=== PATIENT | female | born 1945 | race Caucasian/White ===

== ENCOUNTER → 2017-12-07 07:21 | Outpatient (CLI) | payer MEDICARE, SELFPAY ==
--- NOTE | 2017-12-07 | BRBX_PTH ---
PATIENT: TEJ ROBERTSON LOC: [facility] U#:[id number] AGE/SX: 79/F ROOM: RE12/07/[address]: Dr. Yani Vyas MD : 1945 BED: DIS: SPEC #: [id number] RECD: 12/07/17 12:32 STATUS: [facility] #: [id number] TONEY: 12/07/17 00:[address]: Yani Vyas DEPT: SURGICAL PATHOLOGY RECD BY: Bentley Flor ENTERED: 12/07/17 12:32 SP TYPE: BREAST BX OTHR DR: Dr. 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 Type ? solid, cribriform and comedo types. Microcalcifications ? present, associated with DCIS. Maximal length ? 7.5 mm AM:areli 12/08/17 COMMENT ER/AZ/Jur8epf studies are being performed on ductal carcinoma insitu and the results from this study will be reported separately ([id number]). The focus of invasive carcinoma measures less than 1.0mm in greatest dimension. It is recommended that hormonal marker study be performed on the excised invasive tumor for diagnostic/prognostic validity. Case has been reviewed in consultation with Dr. Melchor who concurs with the above diagnosis. IDC:SJ MICROSCOPIC DESCRIPTION Slides are reviewed. GROSS DESCRIPTION Received in fixative is one container labeled with the patient's name and designated right breast. The specimen consists of multiple irregular and elongated fragments of yellow-white soft tissue that in aggregate measure 3 x 2.2 x 0.2 cm. The specimen is totally submitted in one cassette. / AM:areli 12/07/17 TC:0 CPT: 05072
--- NOTE | 2017-12-07 | IMM_PTH ---
PATIENT: TEJ ROBERTSON LOC: [facility] U#:[id number] AGE/SX: 79/F ROOM: RE12/07/[address]: Dr. Yani Vyas MD : 1945 BED: DIS: SPEC #: [id number] RECD: 12/08/17 10:34 STATUS: MCKEN[facility]IE REQ #: [id number] TONEY: 12/07/17 00:[address]: Yain Vyas DEPT: IMMUNOHISTOCHEMISTRY RECD BY: Geneva Reyes ENTERED: 12/08/17 10:35 SP TYPE: IMMUNO OTHR DR: Dr. Rian Alarcon MD Tissues: Right breast, NOS Procedures: CALPONIN-1 (add) CK8 (add) E-CAD (add) HER2 ALLIE (add) KI-67 (add) P53 (add) OR (add) P40 (add) ER (initial) PHYSICIAN & INSTITUTION [place] [address] SPECIMEN INFORMATION: Tissue Source: Right breast Clinical Info: Deep central lateral right breast calcifications Specimen Number: [id number] CPT code: 09195, 31160 x5, 10730 x3 METHODOLOGY: Deparaffinized sections of prefer/formalin-fixed tissue or PAP/DQ stained slides are incubated with monoclonal/polyclonal antibodies/oligonucleotide probes. Localization is made via biotin free immunoperoxidase method. Appropriate controls are performed and reacted as expected. Results on target cell population are indicated in the following table: RESULTS: ANTIBODY / CLONE RESULT (for DICS) ER (6F11) positive, 20%, dim OR (1E2) positive, 2%, dim Her-2neu (CB11) positive, 3+ P53 (DO-7) positive, 38% Ki-67 (30-9) positive, low CK8 ([id number]) positive Calponin-1 (HJ528W) positive, focal * P40 (BC28) positive * E-Cad (ECH-6) positive * Negative in area of microinvasive carcinoma. These tests were developed and their performance characteristics determined by [facility]. They may not have been cleared or approved by the U.S. Food and Drug Administration. The FDA has determined that such clearance or approval is not necessary. INTERPRETATION: Right breast, stereotactic needle core biopsy: Ductal carcinoma in situ. Focal microinvasive ductal carcinoma (<0.1 cm). Case has been reviewed in consultation with Dr. Melchor who concurs with the above diagnosis. IDC:VIANNEY AM:areli 12/09/17
--- NOTE | 2017-12-07 09:27 | OP.PCM_ITS ---
Report of Operation Date of Procedure: 12/07/17 Pre-Operative Diagnosis: abnormal right breast calcifications on mammograms Post-Operative Diagnosis: same Surgery/Procedure Performed:: right stereotactic breast biopsy Description of Surgical Findings:: lower outer calcifications seen on mammograms Type of Anesthesia:: Local - 1% xylocaine Anesthesiologist: none Specimen's removed: right breast tissue Estimated Blood Loss (mL): < 1 Fluids Replaced: none Description of Procedure: After informed consent was given, the patient was brought into the breast biopsy suite. Appropriate time out protocol was followed. She was then placed in the prone position on the stereotactic biopsy table. The patient?s right breast was then placed in the hole at the head of the table. A other sales support worker compression mammogram was then obtained in the lateral view. The suspicious radiological lesion was then identified. Stereo pictures of the lesion were then taken for XYZ coordinates. The Mammotome biopsy stylus was then positioned where it would be entering into the patient?s breast. The skin at this site was then cleansed with a surgical skin preparation. The skin and subcutaneous tissues at this site were then infiltrated with 1% xylocaine. A small skin incision was made with an 11 blade scalpel. The biopsy stylus was then positioned into the patient?s breast at the proper coordinates of depth. Using the Mammotome vacuum-assist device, several core samples of breast tissue were obtained. A specimen mammogram was the obtained and revealed that the suspicious lesion was within the specimen. A hemostatic marker clip was then placed into the biopsy cavity and a other sales support worker film revealed that it was properly deployed. The patient was then placed in the supine position and pressure was applied to the breast until no active bleeding was noted. Steristrips were applied to reapproximate the skin. A unilateral mammogram in the CC and MLO view were then taken which revealed that the marker clip was in the same area as the previous suspicious lesion. The patient tolerated the procedure well and was discharged from the breast biopsy suite in good condition. - Complications none noted - Admit VTE Documentation VTE Present on Admission: No - low risk procedure for DVT/PE
== END ==
PROVIDERS: Family Provider Family Medicine; PCP Family Medicine; Visit Provider Surgery
DX: D05.11 Intraductal carcinoma in situ of right breast (principal)
CPT/HCPCS: 19081; 88305; 88341; 88342; J7050; A4648

== ENCOUNTER 2017-12-21 10:22 | Day surgery (SDC) | payer MEDICARE, SELFPAY ==
--- NOTE | 2017-12-21 | AXNB_PTH ---
PATIENT: TEJ ROBERTSON [place] [facility] [place] U[place][id number] AGE/SX: 72/F ROOM: RE12/21/[address]: Dr. Yani Vyas MD : 1945 BED: DIS: 12/21/2017 SPEC #: [id number] RECD: 12/21/17 15:13 STATUS: MCKENZIE RE #: [id number] TONEY: 12/21/17 00:[address]: Yani Vyas DEPT: SURGICAL PATHOLOGY RECD BY: Geneva Reyes ENTERED: 12/21/17 16:15 SP TYPE: AX NODE BX OTHR DR: Dr. Rian Alarcon MD Tissues: A - Axillary lymph node, NOS Right breast, NOS Procedures: Frozen Section (charge) Frozen Section Add'l ([facility]) Surgery Specimen Level V Frozen (no charge) HEADER OPERATION: Breast lumpectomy with Neoprobe and NL, frozen section PRE-OP DIAGNOSIS: Right breast cancer TISSUE SUBMITTED: A ? [place] node biopsy right breast, sent FS at 1514, B ? Right breast lumpectomy with wire sent to mammography, then pathology, wire ? lateral, 2 long sutures ? medial, 1 long ? posterior, short suture ? superior border. There is a suture connecting two pieces of tissue that is not marking a border FROZEN SECTION DIAGNOSIS A. Right axillary sentinel lymph nodes, biopsy: Two out of two lymph nodes negative for carcinoma. AM:areli 12/21/17 MICROSCOPIC DIAGNOSIS A. Right axillary sentinel lymph node, biopsy: Two out of two lymph nodes negative for carcinoma. B. Right breast, lumpectomy: Ductal carcinoma in situ. See complete cancer checklist below. AM:areli 12/25/17 COMMENT B. DUCTAL CARCINOMA IN SITU SUMMARY: Specimen - partial breast Procedure - excision with wire-guided localization. Lymph node sampling ? see specimen A Specimen integrity - single intact specimen Specimen size ? 7 x 3 x 2 cm Specimen laterality ? right breast Size (extent) of DCIS: Estimated size (greatest dimension) ? 4 mm Additional dimensions ? 2 x 2 mm Number of blocks with DCIS ? 3 Number of blocks examined - 10 Histologic type - ductal carcinoma in situ Architectural patterns ? solid and focal comedo type Nuclear grade - grade 3 (high grade) Necrosis - present, central Margins: Distance from closest margin ? 0.5 cm from closest (inferior) margin. Lymph nodes: Number of sentinel lymph nodes examined - 2 Total number of lymph nodes examined (sentinel and nonsentinel) ? 2 There is no evidence of macrometastasis or micrometastasis. See specimen A. Microcalcifications ? focally present. Ancillary Studies from previous specimen ([id number] / [id number]): ER ? 20% MI ? 2% Her2 yocasta (IHC) ? 3+ Her2 by FISH - not performed. Pathologic Staging: pTis(DCIS) N0 Mx The above summary is in compliance with [employer] (CAP) Cancer Protocols Checklist and [place] Joint Committee on Cancer (AJCC), Staging Manual, 8th Ed. Immunohistochemistry ([id number]) supports the above diagnosis. Case has been reviewed in consultation with Dr. Melchor who concurs with the above diagnosis. IDC:SJ MICROSCOPIC DESCRIPTION Slides are reviewed. GROSS DESCRIPTION A - Received fresh for frozen section consultation labeled with the patient's name is a specimen designated right axillary sentinel lymph nodes. The specimen consists of an irregular fragment of yellow fatty tissue measuring 5 x 3 x 1 cm. Dissection reveals two nodules resembling lymph nodes that measure 1 and 1.2 cm in greatest dimension, respectively. The nodules are submitted in their entirety for frozen section consultation in two blocks. B - Received fresh for OR consultation labeled with the patient's name is a specimen designated ?right breast lumpectomy.? The specimen consists of an oriented fragment of sanchez-yellow fibrofatty tissue measuring 7 x 3 x 2 cm and weighing 17.6 gm. The specimen is differentially inked as follows: anterior ? yellow, posterior ? black, medial ? red, lateral ? orange, superior ? blue and inferior ? green. The specimen is serially sectioned to reveal a blood filled biopsy cavity measuring 2 x 1 x 0.7 cm. The biopsy is located 0.5 cm from its closest (inferior) margin of excision. The proximity of the lesion to the margin is conveyed to the surgeon intraoperatively. The remainder of the breast parenchyma is sanchez-yellow and contains focal fibrous streaks. Note, the specimen is wire guided. Speech Language Assistant sections are submitted in ten cassettes as follows: 1 ? perpendicular inked margin, 2-6 ? biopsy cavity and surrounding soft issue and margins, 7-10 ? tax compliance representative sections of breast parenchyma away from biopsy cavity. / AM:areli 12/22/17 TC:0 CPT: 61338 x2, 26221, 89776, 44697
--- NOTE | 2017-12-21 | IMM_PTH ---
PATIENT: TEJ ROBERTSON [place]: [facility] [place] U#:[id number] AGE/SX: 72/F ROOM: RE12/21/[address]: Dr. Yani Vyas MD : 1945 BED: DIS: 12/21/2017 SPEC #: [id number] RECD: 12/23/17 13:40 STATUS: MCKENZIE REQ #: [id number] TONEY: 12/21/17 00:[address]: Yani Vyas DEPT: IMMUNOHISTOCHEMISTRY RECD BY: Geneva Reyes ENTERED: 12/23/17 13:45 SP TYPE: IMMUNO OTHR DR: Dr. Rian Alarcon MD Tissues: A - Axillary lymph node, NOS B - Right breast, NOS Procedures: Calponin-1(initial) CALPONIN-1 (add) CK7 (add) Pankeratin (add) P40 (add) CK7 (initial) PHYSICIAN & INSTITUTION [place] [id number] SPECIMEN INFORMATION: Tissue Source: A ? [place] node biopsy right breast, B ? Right breast lumpectomy Clinical Info: Right breast cancer Specimen Number: [id number] A1, A2, B2, B3, B4, B5, B6 CPT code: 37304 x2, 53132 x12 METHODOLOGY: Deparaffinized sections of prefer/formalin-fixed tissue or PAP/DQ stained slides are incubated with monoclonal/polyclonal antibodies/oligonucleotide probes. Localization is made via biotin free immunoperoxidase method. Appropriate controls are performed and reacted as expected. Results on target cell population are indicated in the following table: RESULTS: ANTIBODY / CLONE RESULT Block A1 CK7 (OV-TL12/30) negative AE1-3 (AE1/AE3/PCK26) negative Block A2 CK7 (OV-TL12/30) negative AE1-3 (AE1/AE3/PCK26) negative Block B2 P40 (BC28) positive Calponin-1 (QV188R) positive Block B3 P40 (BC28) positive Calponin-1 (BD673O) positive Block B4 P40 (BC28) positive Calponin-1 (GD516T) positive Block B5 P40 (BC28) positive Calponin-1 (GQ657U) positive Block B6 P40 (BC28) positive Calponin-1 (QL660S) positive These tests were developed and their performance characteristics determined by [facility]. They may not have been cleared or approved by the U.S. Food and Drug Administration. The FDA has determined that such clearance or approval is not necessary. INTERPRETATION: A. Right axillary sentinel lymph nodes, biopsy: Two out of two lymph nodes negative for carcinoma. B. Right breast, lumpectomy: Ductal carcinoma in situ. AM:areli 12/24/17
[2017-12-21 10:44] VITALS: BP 150/64; PULSE 69; RESP 16; TEMP 36.7; O2SAT 99; BMI 25.7
--- NOTE | 2017-12-21 11:00 | NM_ITS ---
PROCEDURE: NUCLEAR MEDICINE Injection [place] Node - RIGHT breast(s). REASON FOR EXAM: Female, 72 years old. Right breast cancer. TECHNIQUE: [place] node localization using radionuclide methods of the RIGHT breast(s) was performed following subcutaneous administration of 1.2 mCi of of sulfur colloid Tc-99m. FINDINGS: 1.2 mCi of technetium labeled sulfur colloid was injected in 4 equal aliquots for sentinel node imaging. NM/Lymph Node Injection Only IMPRESSION: Subcutaneous injection of 1.2 mCi of technetium labeled sulfur colloid for intraoperative sentinel node imaging. Electronically Signed: Darek Btuts MD at 11:28 EST Tel [phone], Service support ,
--- NOTE | 2017-12-21 11:43 | HPBI_ITS ---
SURGICAL BREAST SPECIMEN RADIOGRAPH CLINICAL: Document presence of calcifications in biopsy specimen. FINDINGS: Specimen shows presence of calcifications. Electronically Signed: Darek Butts MD at 8:12 EST Tel [phone], Service support , BI/Breast Biopsy Specimen
[2017-12-21] MEDS: Cefazolin 2 GM in 0.9% Normal Saline 100 ML IV (14:23)
[2017-12-21] MEDS: Isosulfan Blue 1% 5 ML Vial (14:28)
[2017-12-21] MEDS: Bupiv/Epi 0.5% Mpf 30 ML Vial (16:00)
--- NOTE | 2017-12-21 16:19 | PCM.IMDPSTOP ---
Immediate Post-Op Note Date of Procedure: 12/21/17 Primary Surgeon/Physician: Yani Vyas statistical machine servicer: Elisa Hernandez Pre-Operative Diagnosis: right breast cancer Post-Operative Diagnosis: same Surgery/Procedure Performed:: right breast lumpectomy via wire localization, right axillary sentinel lymph node biopsy via radioactive and blue dye localization Description of Surgical Findings:: biopsy cavity deep central, closest margin inferior 5mm from biopsy cavity, two lymph node negative, tumor 10 second count over 30,000, lymph node count 81, control site count 1 Estimated Blood Loss: < 10 ml Specimen's removed: right breast lumpectomy, right axillary lymph viviana tissue Drains: none Type of Anesthesia:: General ASA Class: ASA2 Mod Systematic Disease - Admit VTE Documentation VTE Present on Admission: Yes VTE Mechan Device Prophylaxis: SCD's
--- NOTE | 2017-12-21 16:21 | PCM.OPRPT ---
Report of Operation Date of Procedure: 12/21/17 Pre-Operative Diagnosis: right breast cancer Post-Operative Diagnosis: same Surgery/Procedure Performed:: right breast lumpectomy via wire localization, right axillary sentinel lymph node biopsy via radioactive and blue dye localization Description of Surgical Findings:: biopsy cavity deep central, two lymph node negative, tumor 10 second count over 30,000, lymph node count 81, control site count 1 gauge and weigh machine adjuster: Elisa Hernandez Type of Anesthesia:: General Anesthesiologist: Noris Saavedra Specimen's removed: right breast lumpectomy, right axillary lymph viviana tissue Drains: none Estimated Blood Loss (mL): < 10 ml Description of Procedure: After informed consent was given, the patient was brought into the Breast Stereotactic Radiology suite. Appropriate time out protocol was followed. She was then placed in the prone position on the Bob stereotactic table. The patients right breast was placed in the opening at the head of the table. A burglar alarm inspector compression mammogram was then obtained in the lateral view. The marker clip that was previously placed was identified. Stereo pictures of the lesion were then taken for XYZ coordinates. The Kopans needle was then positioned where it would be entering into the patients breast. The skin at this site was then cleansed with a surgical skin preparation. The skin and subcutaneous tissues at this site were then infiltrated with 1% xylocaine. The Kopans needle was then positioned into the patients breast at the proper coordinates of depth. A burglar alarm inspector film was obtained which revealed the wire in proper position. The patient was then placed in the supine position and the wire was taped into place. A unilateral mammogram in the CC and MLO view were then taken for use in the OR. The patient tolerated this portion of the procedure well and was brought to the AC awaiting surgery in the OR. The patient was then brought to the Operating Room. Appropriate time out protocol was followed. She was placed on the operating table in the supine position. She was then placed under general anesthesia. 3 cc of diluted 50:50 lymphozurin was then injected into the periareolar area and around the biopsy cavity with a 25 g needle. Gentle massage was then done for several minutes. The patient's right chest and neck area was then prepped with a betadyne surgical skin preparation and appropriate sterile surgical drapes were placed. A skin incision was made in the inferior portion of the hair bearing area of the right axilla. It was carried through to the subcutaneous tissues using electrocautery. Any hemorrhage was controlled with electrocautery. A Weitlaner retractor was used for increased operative exposure. The blue lymphatic vessels were then followed by blunt dissection until blue colored tissue was identified. The Neoprobe was brought into the operative field. 10 second count of the tumor site was at least [address]. 10 second count over a control site was 1. The lymph tissue was dissected free from the surrounding tissue using blunt and sharp dissection. Blood and lymph vessels were ligated with clips. Once the tissue was out of the axilla, a 10 second count of this tissue was 81. The tissue was forwarded to pathology. 10 second count in the axilla after this tissue was removed was 2. Pathology revealed that two lymph nodes were negative for metastatic disease. Hemostasis was carefully checked and found to be good. Aden was applied in the cavity. The skin edges were reapproximated with 3-0 vicryl suture in a horizontal mattress fashion and then further closed with running 4-0 monocryl in a subcuticular fashion. Cavilon and steristrips were then placed to reinforce the skin closure and proper sterile dressings were applied. The right breast lumpectomy was approached next. A wire had already been placed in the stereotactic biopsy room in the radiology department as described above. The right breast with the wire in placed was then prepped with a sterile surgical skin preparation and sterile surgical drapes were placed. The skin and subcutaneous tissues at the site of the breast lesion was then infiltrated with 1% xylocaine with epinephrine. A lower circumareolar then laterally extended transverse skin incision was made with a 15 blade scalpel and carried down through to the subcutaneous tissues. Hemostasis was controlled with electrocautery. The wire was then palpated out and brought into the wound from outside. The breast tissue surrounding the wire was then carefully palpated out and from the surrounding tissues using electrocautery. The breast tissue, once from the breast, was then forwarded to the radiology department, where a specimen mammogram revealed that the marker clip was within the specimen. The breast tissue was then forwarded to pathology for analysis. Pathology review revealed that the closest margin of the biopsy cavity was inferior with a measurement of 5mm. The wound cavity was carefully examined. No further suspicious tissue was palpated or visualized. Hemostasis was carefully controlled with electrocautery. The subdermal tissues were then approximated with vicryl suture. The incision was then reapproximated close using running monocryl suture. Cavilon and steristrips were then placed to reinforce the skin closure. A sterile dressing was then applied. The patient was then brought to the Recovery Room in stable condition. - Complications none noted - Admit VTE Documentation VTE Present on Admission: Yes VTE Mechan Device Prophylaxis: SCD's
--- NOTE | 2017-12-21 16:22 | OP.PN_ITS ---
Immediate Post-Op Note Date of Procedure: 12/21/17 Primary Surgeon/Physician: Yani Vyas construction analyst: Elisa Hernandez Pre-Operative Diagnosis: right breast cancer Post-Operative Diagnosis: same Surgery/Procedure Performed:: right breast lumpectomy via wire localization, right axillary sentinel lymph node biopsy via radioactive and blue dye localization Description of Surgical Findings:: biopsy cavity deep central, closest margin inferior 5mm from biopsy cavity, two lymph node negative, tumor 10 second count over 30,000, lymph node count 81 , control site count 1 Estimated Blood Loss: < 10 ml Specimen's removed: right breast lumpectomy, right axillary lymph viviana tissue Drains: none Type of Anesthesia:: General ASA Class: ASA2 Mod Systematic Disease - Admit VTE Documentation VTE Present on Admission: Yes VTE Mechan Device Prophylaxis: SCD's
--- NOTE | 2017-12-21 16:24 | OP.PCM_ITS ---
Report of Operation Date of Procedure: 12/21/17 Pre-Operative Diagnosis: right breast cancer Post-Operative Diagnosis: same Surgery/Procedure Performed:: right breast lumpectomy via wire localization, right axillary sentinel lymph node biopsy via radioactive and blue dye localization Description of Surgical Findings:: biopsy cavity deep central, two lymph node negative, tumor 10 second count over 30,000, lymph node count 81, control site count 1 tableau developer: Elisa Hernandez Type of Anesthesia:: General Anesthesiologist: Noris Saavedra Specimen's removed: right breast lumpectomy, right axillary lymph viviana tissue Drains: none Estimated Blood Loss (mL): < 10 ml Description of Procedure: After informed consent was given, the patient was brought into the Breast Stereotactic Radiology suite. Appropriate time out protocol was followed. She was then placed in the prone position on the [place] stereotactic table. The patient?s right breast was placed in the opening at the head of the table. A caser shoe parts compression mammogram was then obtained in the lateral view. The marker clip that was previously placed was identified. Stereo pictures of the lesion were then taken for XYZ coordinates. The Kopans needle was then positioned where it would be entering into the patient?s breast. The skin at this site was then cleansed with a surgical skin preparation. The skin and subcutaneous tissues at this site were then infiltrated with 1% xylocaine. The Kopans needle was then positioned into the patient?s breast at the proper coordinates of depth. A caser shoe parts film was obtained which revealed the wire in proper position. The patient was then placed in the supine position and the wire was taped into place. A unilateral mammogram in the CC and MLO view were then taken for use in the OR. The patient tolerated this portion of the procedure well and was brought to the AC awaiting surgery in the OR. The patient was then brought to the Operating Room. Appropriate time out protocol was followed. She was placed on the operating table in the supine position. She was then placed under general anesthesia. 3 cc of diluted 50:50 lymphozurin was then injected into the periareolar area and around the biopsy cavity with a 25 g needle. Gentle massage was then done for several minutes. The patient's right chest and neck area was then prepped with a betadyne surgical skin preparation and appropriate sterile surgical drapes were placed. A skin incision was made in the inferior portion of the hair bearing area of the right axilla. It was carried through to the subcutaneous tissues using electrocautery. Any hemorrhage was controlled with electrocautery. A Weitlaner retractor was used for increased operative exposure. The blue lymphatic vessels were then followed by blunt dissection until blue colored tissue was identified. The Neoprobe was brought into the operative field. 10 second count of the tumor site was at least [address]. 10 second count over a control site was 1. The lymph tissue was dissected free from the surrounding tissue using blunt and sharp dissection. Blood and lymph vessels were ligated with clips. Once the tissue was out of the axilla, a 10 second count of this tissue was 81. The tissue was forwarded to pathology. 10 second count in the axilla after this tissue was removed was 2. Pathology revealed that two lymph nodes were negative for metastatic disease. Hemostasis was carefully checked and found to be good. Aden was applied in the cavity. The skin edges were reapproximated with 3-0 vicryl suture in a horizontal mattress fashion and then further closed with running 4-0 monocryl in a subcuticular fashion. Cavilon and steristrips were then placed to reinforce the skin closure and proper sterile dressings were applied. The right breast lumpectomy was approached next. A wire had already been placed in the stereotactic biopsy room in the radiology department as described above. The right breast with the wire in placed was then prepped with a sterile surgical skin preparation and sterile surgical drapes were placed. The skin and subcutaneous tissues at the site of the breast lesion was then infiltrated with 1% xylocaine with epinephrine. A lower circumareolar then laterally extended transverse skin incision was made with a 15 blade scalpel and carried down through to the subcutaneous tissues. Hemostasis was controlled with electrocautery. The wire was then palpated out and brought into the wound from outside. The breast tissue surrounding the wire was then carefully palpated out and from the surrounding tissues using electrocautery. The breast tissue, once from the breast, was then forwarded to the radiology department, where a specimen mammogram revealed that the marker clip was within the specimen. The breast tissue was then forwarded to pathology for analysis. Pathology review revealed that the closest margin of the biopsy cavity was inferior with a measurement of 5mm. The wound cavity was carefully examined. No further suspicious tissue was palpated or visualized. Hemostasis was carefully controlled with electrocautery. The subdermal tissues were then approximated with vicryl suture. The incision was then reapproximated close using running monocryl suture. Cavilon and steristrips were then placed to reinforce the skin closure. A sterile dressing was then applied. The patient was then brought to the Recovery Room in stable condition. - Complications none noted - Admit VTE Documentation VTE Present on Admission: Yes VTE Mechan Device Prophylaxis: SCD's
--- NOTE | 2017-12-21 16:25 | PCM.DC.BS ---
Discharge Diet: No Restrictions Discharge Activity: Return to Normal Activity, May not drive while taking narcotic pain medications. Lifting Restrictions: no lifting with right arm greater than 10 pounds until further notice Call your doctor if your incision/area has: Continuous Slow Oozing, Foul Smelling Discharge Call your doctor if you observe: Fever of 101 or Higher Additional Dressing/Incision Instructions:: May shower, do not scrub in area. Leave dressings in place. Do not soak - no tub baths/swimming. Ice pack to area for comfort as tolerated Allergies/Adverse Reactions: Allergies ibuprofen [From Motrin] Adverse Reaction (Verified 12/17/17 13:59) Upset Stomach Medications to take at Discharge Albuterol Inhaler [Ventolin Hfa (SP)] 1 - 2 puff INHALATION Q4H PRN PRN 12/17/17 Aspirin E.C. [Ecotrin] 81 mg PO DAILY@0800 12/17/17 Calcium Carbonate [Calcium] 600 mg PO BID 12/17/17 Cholecalciferol (Vitamin D3) [Vitamin D3] 1,000 unit PO DAILY 12/17/17 Clonazepam [Klonopin] 0.5 mg PO BID 12/17/17 Fluticasone 110 Mcg [Flovent (SP)] 1 puff INHALATION BID 12/17/17 Hydrochlorothiazide 12.5 mg PO DAILY 12/17/17 Levothyroxine [Synthroid] 88 mcg PO DAILY 12/17/17 Metoprolol Tartrate [Lopressor (Beta Susana)] 12.5 mg PO DAILY 12/17/17 Multivitamin [Multiple Vitamins] 1 each PO QHS 12/17/17 Simvastatin [Zocor] 20 mg PO QHS 12/17/17 Hydrocodone/Acetaminophen [Chama 5-325 Tablet] 1 ea PO Q6H PRN PRN 5 Days #20 tab 12/21/17 ProMETHAzine [Phenergan] 25 mg PO Q6H PRN PRN #7 tab 12/21/17 The following prescriptions were given: Hydrocodone/Acetaminophen [Chama 5-325 Tablet] 1 ea PO Q6H PRN PRN 5 Days #20 tab PRN Reason: Mod-Severe Pain (4-10/10) ProMETHAzine [Phenergan] 25 mg PO Q6H PRN PRN #7 tab PRN Reason: Nausea/Vomiting Please Follow Up With: Yani Vyas MD - call When: to be seen on ThursdayDec 25, please call for time, thank you
[2017-12-21 16:33] VITALS: BP 131/59; BP 150/64; PULSE 92; RESP 10; TEMP 36.4; O2SAT 94
[2017-12-21 16:45] VITALS: BP 143/68; BP 150/64; PULSE 92; RESP 16; O2SAT 94
[2017-12-21 17:00] VITALS: BP 133/61; BP 150/64; PULSE 90; RESP 16; O2SAT 91
[2017-12-21 17:15] VITALS: BP 131/64; BP 150/64; PULSE 91; RESP 16; TEMP 36.1; O2SAT 93
[2017-12-21 17:39] VITALS: BP 150/64
== END 2017-12-21 17:50 | disposition home or self-care (01) ==
LOC: SDC 10:23 → AC 10:24
PROVIDERS: Family Provider Family Medicine; PCP Family Medicine; Visit Provider Surgery
PROC: (CPT 19301; principal; 2017-12-21 13:30)
DX: D05.11 Intraductal carcinoma in situ of right breast (principal); I73.9 Peripheral vascular disease, unspecified; I65.29 Occlusion and stenosis of unspecified carotid artery; I31.3 Pericardial effusion (noninflammatory); I10 Essential (primary) hypertension; J45.909 Unspecified asthma, uncomplicated; E78.00 Pure hypercholesterolemia, unspecified; E06.9 Thyroiditis, unspecified; M19.042 Primary osteoarthritis, left hand; M19.041 Primary osteoarthritis, right hand; Z85.828 Personal history of other malignant neoplasm of skin; Z79.82 Long term (current) use of aspirin; Z79.899 Other long term (current) drug therapy
CPT/HCPCS: 00400; 19301; 38500; 19281; 38792; 76098; 88305; 88307; 88331; 88332; 88341; 88342; A9541; J7050; J7120; J2405; J3490; Q9968